=== PATIENT | male | born 1980 | race Caucasian/White ===

== ENCOUNTER 2016-09-09 12:52 | Emergency (ER) | payer OTHER ==
[~2016-09-09] VITALS: Ht 180.3 cm; Wt 90.4 kg
[2016-09-09] MEDS ORDERED: PREDNISONE10 MG PO (15:19)
[2016-09-09 15:29] VITALS: BP 149/82
== END 2016-09-09 15:37 | disposition home or self-care (01) ==
LOC: EME 12:52
DX: M54.13 Radiculopathy, cervicothoracic region (principal); F17.200 Nicotine dependence, unspecified, uncomplicated
CPT/HCPCS: 99281; 99283

== ENCOUNTER 2017-01-31 09:37 | Emergency (ER) | payer OTHER ==
[~2017-01-31] VITALS: Ht 180.3 cm; Wt 95.6 kg
[~2017-01-31 09:37] MED LIST: PREDNISONE10 MG PO
[2017-01-31] MEDS ORDERED: MOTRIN600 MG PO (13:04)
[2017-01-31] MEDS ORDERED: FLEXERIL10 MG PO (13:04)
[2017-01-31 13:28] VITALS: BP 124/91
== END 2017-01-31 13:29 | disposition home or self-care (01) ==
LOC: EME 09:37
DX: S39.012A Strain of muscle, fascia and tendon of lower back, initial encounter (principal); M79.605 Pain in left leg; X50.1XXA Overexertion from prolonged static or awkward postures, initial encounter; Y99.0 Civilian activity done for income or pay; F17.200 Nicotine dependence, unspecified, uncomplicated